=== PATIENT | male | born 1965 | race Caucasian/White ===

== ENCOUNTER 2023-02-23 12:58 | Emergency (ER) | payer SELFPAY ==
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
[2023-02-23] MEDS ORDERED: Sodium Chloride 0.9% 1000 ML 1,000 ML IV SCH (13:30)
[2023-02-23 13:58] LABS: Absolute Neutrophil Ct (ANC) 5.38 x10^3/uL (1.4-6.9); BASOPHIL % 0.5 % (0.0-0.4); Basophil (Absolute #) 0.04 x10^3/uL (0-0.4); Eosinophil % 1.3 % (0.00-5.0); Eosinophil (Absolute #) 0.11 x10^3/uL (0-0.5); Hematocrit 39.3 % (42-50); Hemoglobin 12.7 g/dL (12.5-18.0); IMMATURE GRAN # 0.02 x10^3u/L (0.00-0.03); IMMATURE GRAN % 0.2 % (0.00-0.4); Lymphocyte (Absolute #) 1.81 x10^3/uL (1.0-4.6); Lymphocytes % 21.5 % (24.0-44.0); Mean Cell Volume 100.3 fL (78-100); Mean Corpuscular Hemoglobin 32.4 pg (26-32); Mean Corpuscular Hgb Concent. 32.3 g/dL (32-36); Mean Platelet Volume 9.1 fL (7.5-11.0); Monocyte (Absolute #) 1.04 x10^3/uL (0.0-1.3); Monocytes % 12.4 % (0.0-12.0); Neutrophil % 64.1 % (36.0-66.0); Platelet Count 386 x10^3/uL (150-450); Red Blood Count 3.92 x10^6/uL (4.1-5.6); White Blood Count 8.4 x10^3/uL (4.0-10.5)
[2023-02-23 14:12] LABS: ALBUMIN 4.6 g/dL (3.5-5.0); ALKALINE PHOSPHATASE 69 U/L (38-126); ANION GAP 12.2 MEQ/L (5-15); BLOOD UREA NITROGEN 10 mg/dL (9-20); CHLORIDE 99 mmol/L (98-107); Calcium 9.1 mg/dL (8.4-10.2); Carbon Dioxide 32 mmol/L (22-30); Creatinine 1 0.59 mg/dL (0.66-1.25); EST GLOMERULAR FILTRATION RATE > 60.0 ML/MIN; Glucose 120 mg/dL (74-106); Potassium 4.5 mmol/L (3.5-5.1); SGOT/AST 29 U/L (17-59); SGPT/ALT 23 U/L (0-50); SODIUM 139 mmol/L (137-145); Total Protein 7.2 g/dL (6.3-8.2)
[2023-02-23 14:46] LABS: INFLUENZA A NEGATIVE (NEGATIVE); INFLUENZA B NEGATIVE (NEGATIVE); RESPIRATORY SYNCTIAL VIRUS NEGATIVE (NEGATIVE); SARS-CoV-2 Xpert Express NEGATIVE (NEGATIVE)
--- NOTE | 2023-02-23 15:41 | XRAY ---
CLINICAL HISTORY:Confusion; weakness. COMPARISON:None; TECHNIQUES:Axial non-contrast CT scan of the brain was performed from the skull base to the high parietal region. In addition multiplanar reformatted coronal and sagittal images were acquired. CTDI 53.92 DLP 1016 mGy*cm; FINDINGS: Nasal bone fracture indeterminate for age is noted. Please correlate clinically. Extra-axial focal fat deposit in the torcula dural sinus is noted. Right cerebellar hemisphere 1.5 cm hypodense change may be representing sequela cystic change. No surrounding edema or mass effect. Further evaluation with contrast-enhanced MRI is recommended. The visualized cerebral parenchyma shows normal appearance. Andre-white matter differentiation is maintained. No midline shifts or deformity. No intracerebral or extra axial hematoma. Normal size and configuration of the cerebral ventricles. Normal CT appearance of the posterior fossa structures namely the cerebellar hemispheres, brainstem and cerebellar peduncles. The cerebellopontine angles are clear. The pituitary gland, the pineal gland, the optic chiasm is unremarkable. The osseous structures in the skull base are unremarkable. No definite calvarium fractures. The scanned paranasal sinuses are clear. IMPRESSION: Nasal bone non-displaced fracture indeterminate for age. Right cerebellar 1.5 cm hypodense cystic change most likely chronic sequela. However, to exclude any underlying abnormality further evaluation with contrast-enhanced MRI is recommended. Extra-axial focal fat deposit in torcula as a benign variant. No hemorrhage or edema. Electronically Signed by: Rosanna Christensen MD. (02/23/2023 14:32:40 [facility])
[2023-02-23 16:58] LABS: Appearance Clear (Clear); Bacteria None Seen /HPF (None Seen); Bilirubin Negative (Negative); Blood Negative (Negative); Epithelial Cells None Seen /HPF (None Seen); Glucose, Urine Negative (Negative); Hyaline Casts NONE SEEN /LPF (0-2); Ketones Negative (Negative); Leukocyte Esterase Negative (Negative); Nitrite Negative (Negative); Protein,Urine Dip Negative (Negative); RBC 0-2 /HPF (0-5); Urobilinogen 0.2 mg/dL (0.2); WBC 0-2 /HPF (0-5)
[2023-02-23 17:11] LABS: ADD URINE CULTURE? NO (NO)
[2023-02-23 17:34] VITALS: BP 142/99; PULSE 72; O2SAT 100
[2023-02-23 17:37] LABS: Amphetamine,Urine NEGATIVE (NEGATIVE); Barbiturate,Urine NEGATIVE (NEGATIVE); Benzodiazepine,Urine POSITIVE (NEGATIVE); Cocaine,Urine NEGATIVE (NEGATIVE); Methadone,Urine NEGATIVE (NEGATIVE); Opiate,Urine NEGATIVE (NEGATIVE); PCP,Urine NEGATIVE (NEGATIVE); THC,Urine POSITIVE (NEGATIVE)
--- NOTE | 2023-02-23 20:54 | XRAY ---
Indication: Status post fall. Confusion. Comparison: None 2 view left lower leg demonstrates well circumscribed tibial tuberosity heterotopic ossification developmental versus sequela old injury. No other bony, articular, or soft tissue abnormalities.
--- NOTE | 2023-02-23 20:56 | XRAY ---
Indication: Status post fall. Confusion. Comparison: None 2 view right knee demonstrates prominent tibial tuberosity presumed developmental. No other bony, articular, or soft tissue abnormalities.
== END 2023-02-23 17:35 | disposition home or self-care (01) ==
LOC: ED 12:58
DX: R41.0 Disorientation, unspecified (principal); S80.212A Abrasion, left knee, initial encounter; S80.211A Abrasion, right knee, initial encounter; W18.30XA Fall on same level, unspecified, initial encounter
CPT/HCPCS: 0241U; 36000; 36415; 70450; 73560; 80053; 80307; 81001; 85025; 86308; 87040; 93005; 93041; 94760; 96360; 96361; 99284; P9612